=== PATIENT | male | born 1955 | race Caucasian/White ===

== ENCOUNTER 2023-06-12 09:05 | Outpatient (REF) | payer MEDICARE, SELFPAY ==
[2023-06-12 11:46] LABS: Appearance Urine Clear; Color Urine Yellow; Glucose Urine UA Negative (Negative); Leukocyte Esterase Urine Negative (Negative); Nitrite Urine Negative (Negative); Urine Blood Negative (Negative); Urine Ketones Negative (Negative); Urine Protein Negative (Neg-Trace)
[2023-06-12 11:57] LABS: Alanine Aminotransferase 16 U/L (0-40); Albumin Level 4.1 g/dL (3.5-5.0); Alkaline Phosphatase 77 U/L (39-117); Anion Gap 15 (12-20); Aspartate Amino Transferase 18 U/L (5-37); Bilirubin Total 0.6 mg/dL (0.0-1.0); Blood Urea Nitrogen 17 mg/dL (9-16); Calcium 9.2 mg/dL (8.4-10.2); Carbon Dioxide 18 mmol/L (22-29); Chloride 107 mmol/L (96-108); Cholesterol 180 mg/dL; Estimated Glomerular Filt Rate > 60; Glucose Fasting 104 mg/dL (60-99); HDL Cholesterol 38 mg/dL; LDL Cholesterol Calculated 118 mg/dl; Potassium 3.8 mmol/L (3.3-5.1); Sodium 136 mmol/L (135-145); Total Protein 7.1 g/dL (6.5-8.0); Triglycerides 121 mg/dL
[2023-06-12 12:15] LABS: TSH reflex Free T4 1.07 uIU/mL (0.32-4.0)
[2023-06-12 12:27] LABS: Creatinine Urine 114.03 mg/dL; Microalbumin Urine < 5.0 mg/L
== END 2023-06-12 09:06 | disposition home or self-care (01) ==
LOC: HO.WFDLDS 09:05
PROVIDERS: Visit Provider Family Medicine
DX: Z00.00 Encounter for general adult medical examination without abnormal findings (principal); I10 Essential (primary) hypertension
CPT/HCPCS: 36415; 80053; 80061; 81003; 82043; 84443

== ENCOUNTER 2023-06-12 09:18 | Outpatient (AMB) | payer MEDICARE, SELFPAY ==
--- NOTE | 2023-06-12 09:35 | A.OFFPC_ITS ---
Vital Signs 06/12/23 09:36 Height 5 ft 10 in Weight 206 lb BMI 29.6 BP 114/66 Blood Pressure Location Rt brachial Position Sitting Respiration 14 Pulse 87 Pulse Source Pulse Oximeter Temp 97.9 F Temp Source Temporal Artery Scan Pulse Oximetry (%) 99 Oxygen Delivery Method Room Air Intake Visit Reasons: Skin tag removal Intake Note: Patient has a skin tag located middle, right side of back. Patient states no symptoms of the area. 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 No pertinent past medical history Family History Paternal Grandfather Enlarged heart Father Heart problem Brother Prostate cancer Shoulder problem Mother Hydrocephalus Social History Housing: House Patient Tobacco Use Status: Never used Tobacco e-Cigarette/Vaping Use: Never Used service: No Current occupational status: retired Cognitive needs: No Hearing needs: No Vision needs: Yes (sometimes clear and sometimes blurry- wears glasses.) Review of Systems Const Denies chills, Denies fatigue, Denies fever(s), Denies headache(s) and Denies weakness ENT Denies dizziness and Denies headache(s) Card Denies dyspnea Resp Denies cough, Denies dyspnea, Denies wheezing and Denies other (shortness of breath) Musc Denies numbness and Denies tingling Neuro Denies dizziness, Denies headache(s), Denies numbness, Denies tingling and Denies weakness Psych Denies anxiety and Denies depression Endo Denies fatigue Aller/Immun Denies wheezing Physical exam (Primary Care) Vital Signs: Last Vital Signs Temp 97.9 F 06/12/23 09:36 Pulse 87 06/12/23 09:36 Resp 14 06/12/23 09:36 BP 114/66 06/12/23 09:36 Pulse Ox 99 06/12/23 09:36 Oxygen Delivery Method Room Air 06/12/23 09:36 BMI result Body Mass Index 29.6 Tobacco/Smoking Status: Tobacco use Status Tobacco use date assessed 05/05/23 06/12/23 09:36 Patient Tobacco Use Status Never used Tobacco 06/12/23 09:36 e-Cigarette/Vaping Use Never Used 06/12/23 09:36 Const General: well developed; No acute distress Nutritional Appearance: well nourished Orientation/consciousness: patient oriented x3 HENMT Head: Yes normocephalic and Yes atraumatic Eyes General: appearance normal, both eyes and all related structures Pupils: Equal, round and reactive pupils present EOM: EOMs intact bilaterally Resp Effort & Inspection: normal respiratory effort Skin Other: 1 cm raised skin tag on the R side of his mid back Neuro General: patient oriented x3 and gait normal Cranial nerves: Yes Equal, round and reactive pupils present Psych Affect: normal affect Assessment and Plan Assessment & Plan (1) Skin tag: Code(s): L91.8 - Other hypertrophic disorders of the skin Plan: Cleaned and prepped skin tag region in the usual fashion Applied prior freeze spray with 3 cycles of freeze-thaw Patient tolerated the procedure well Discussed S/S infection and patient will call or return to the office if he sees these Also discussed that this may require a 2nd treatment; if 2nd treatment fails, will refer him to Dermatology Coding Level of Care Code Est Pt Level 3 (68605) Diagnoses Skin tag L91.8
[2023-06-12 09:36] VITALS: BP 114/66; PULSE 87; RESP 14; TEMP 36.6; O2SAT 99; BMI 29.6
== END 2023-06-12 10:32 | disposition home or self-care (01) ==
PROVIDERS: PCP Family Medicine; Visit Provider Family Medicine
DX: L91.8 Other hypertrophic disorders of the skin (principal)
CPT/HCPCS: 99213

== ENCOUNTER 2023-07-07 13:52 | Outpatient (AMB) | payer MEDICARE, SELFPAY ==
[2023-07-07 13:59] VITALS: BP 122/72; PULSE 79; O2SAT 97; BMI 30.1
--- NOTE | 2023-07-07 13:59 | MHC.PC.OV ---
Vital Signs 07/07/23 13:59 Height 5 ft 10 in Weight 209 lb 8 oz BMI 30.1 BP 122/72 Blood Pressure Location Rt brachial Position Sitting Pulse 79 Pulse Source Pulse Oximeter Pulse Oximetry (%) 97 Intake Visit Reasons: Extended exam with f/u labs and health maintenance Intake Note: Patient is here for extended exam, with follow up labs and health maintenance. Patient would like skin tag looked at. Allergies Penicillins Allergy (Mild, Verified 07/07/23 14:03) Rash Tobacco use date assessed: 07/07/23 Fall risk assessment: No Falls in past year Last assessed Fall Risk: 07/07/23 Dental Screening Did you have a dental visit in the last 12 months?: Yes Did you have a dental problem in the last 6 months where you did not have access to dental care?: No Was dental information given to patient?: Patient has dentist HPI Extended exam with f/u labs and health maintenance HPI Details 67 y/o male presents for an extended exam with f/u labs and health maintenance. Labs were drawn 06/12/23. Reviewed labs with pt. Elevated fasting glucose of 104. A1c today 07/07/23 is 5.8%. Triglycerides 121. TC 180. LDL 118. HDL low at 38. Pt reports ongoing skin tags. [facility] Medical History Aftercare following left ankle joint replacement surgery No pertinent past medical history Family History Paternal Grandfather Enlarged heart Father Heart problem Brother Prostate cancer Shoulder problem Mother Hydrocephalus Social History Housing: House Patient Tobacco Use Status: Never used Tobacco e-Cigarette/Vaping Use: Never Used service: No Current occupational status: retired Cognitive needs: No Hearing needs: No Vision needs: Yes (sometimes clear and sometimes blurry- wears glasses.) Review of Systems Const Denies chills, Denies fatigue, Denies fever(s), Denies headache(s) and Denies weakness Eyes Denies change in vision ENT Denies dizziness, Denies headache(s), Denies hearing loss, Denies nasal congestion, Denies sinus pain, Denies sinus pressure and Denies sore throat Card Denies chest pain, Denies lightheadedness, Denies dyspnea and Denies other (palpitations) Resp Denies cough, Denies dyspnea and Denies wheezing GI Denies abdominal pain, Denies melena, Denies hematochezia, Denies change in bowel habits, Denies dyspepsia and Denies nausea Denies hematuria and Denies dysuria Musc Denies abnormal gait, Denies myalgias, Denies arthralgias, Denies numbness and Denies tingling Skin/Breast Denies rash, Denies unusual bruising and Denies wounds Neuro Denies abnormal gait, Denies dizziness, Denies headache(s), Denies memory loss, Denies numbness, Denies Sensory deficit (Neuro), Denies tingling and Denies weakness Psych Denies anxiety, Denies depression and Denies memory loss Endo Denies cold intolerance, Denies fatigue, Denies heat intolerance, Denies polydipsia and Denies polyuria Brian/Lymph Denies easy bleeding and Denies easy bruising Aller/Immun Denies wheezing Physical exam (Primary Care) Vital Signs: Last Vital Signs Pulse 79 07/07/23 13:59 BP 122/72 07/07/23 13:59 Pulse Ox 97 07/07/23 13:59 BMI result Body Mass Index 30.1 Tobacco/Smoking Status: Tobacco use Status Tobacco use date assessed 07/07/23 07/07/23 14:08 Patient Tobacco Use Status Never used Tobacco 07/07/23 14:02 e-Cigarette/Vaping Use Never Used 07/07/23 14:02 Const General: no acute distress, well developed, alert and awake Nutritional Appearance: well nourished Orientation/consciousness: patient oriented x3 HENMT Head: Yes normocephalic and Yes atraumatic Ears: hearing grossly normal bilaterally and TM's normal bilaterally General nose exam: Normal external nose present and Normal nares present Mouth: Normal oral and palatal mucosa present and moist mucous membranes Teeth and gingiva: dentition normal Throat: Yes posterior oropharynx normal Eyes General: appearance normal, both eyes and all related structures Pupils: Equal, round and reactive pupils present and Pupil accommodation reflex normal EOM: EOMs intact bilaterally Neck Neck: Yes normal visual inspection, Yes no lymphadenopathy and Yes trachea midline Thyroid: Thyroid normal Carotids: no bruits Lymphatic: no lymphadenopathy noted Chest Chest palpation & inspection: normal inspection of the chest Resp Effort & Inspection: normal respiratory effort Auscultation: clear to auscultation bilaterally Cardio Rate: regular rate Rhythm: regular rhythm Heart sounds: S1 normal heart sound present, S2 normal heart sound present, no gallops, no murmurs and no rubs Bruits: no abdominal aortic bruits and no carotid bruits GI Palpation (GI): No Abdominal aortic bruit present, Soft to palpation, nontender, No hepatosplenomegaly present and No Rebound tenderness present Auscultation: normal bowel sounds General: Yes no CVA tenderness Back/Spine/Pelvis Back: no CVA tenderness Cervical Spine: cervical ROM normal and No Cervical spine tenderness Thoracic/Lumbar Spine: thoraco-lumbar ROM normal, No pain with thoraco-lumbar ROM, No thoracic spinal tenderness and No lumbar spinal tenderness Skin Lesions: no lesions Rashes: no rashes Trauma: no lacerations or abrasions Wounds: no wounds Nails: normal Neuro General: patient oriented x3 Cranial nerves: Yes Equal, round and reactive pupils present Cognition (Neuro): normal cognition Gait exam (Neuro): Normal gait present Motor exam (neuro): 5/5 motor strength present throughout Sensory Exam: No Sensory deficit (Neuro) Deep tendon reflexes (DTR's): Right patellar reflex intensity grade: 2+ and Left patellar reflex intensity grade: 2+ Extrem General: Yes normal to inspection and No edema Psych Appearance: grossly normal Affect: normal affect Attitude: cooperative Thought process: Normal thought process present Results AMB Hemoglobin A1c AMB Hemoglobin A1c 5.8 % Last Edit by Julita Spain CMA on 07/07/23 14:26 Assessment and Plan Assessment & Plan (1) Skin tag: Code(s): L91.8 - Other hypertrophic disorders of the skin Plan: Skin tag persists after cryotherapy at last visit. Mild local infection of pedunculated aspect of skin tag He can use the triple antibiotic on this. 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 (4) Knee pain: Code(s): M25.569 - Pain in unspecified knee Plan: Right medial knee pain and probable strain of the medial collateral ligament Can start physical therapy (5) Screening for prostate cancer: Code(s): Z12.5 - Encounter for screening for malignant neoplasm of prostate Plan: Check PSA (6) Screening for colon cancer: Code(s): Z12.11 - Encounter for screening for malignant neoplasm of colon Plan: Patient says he had a colonoscopy at age 63 and was told to follow-up in 10 years. He will bring report (7) Adult general medical exam: Code(s): Z00.00 - Encounter for general adult medical examination without abnormal findings Plan: 67-year-old male presents for extended exam Encouraged healthy diet with active lifestyle and plenty of exercise Orders: Orders Prostate Specific Antigen Scr Today Z12.5 - Encounter for screening for malignant neoplasm of prostate PT Evaluation and Treatment Today M25.569 - Pain in unspecified knee AMB Hemoglobin A1c Today Z13.9 - Encounter for screening, unspecified Basic Metabolic Panel Fasting Today R73.01 - Impaired fasting glucose Lipid Panel Today E78.6 - Lipoprotein deficiency, Z00.00 - Encounter for general adult medical examination without abnormal findings Coding Level of Care Code Est Pt Level 4 (72671) Diagnoses Skin tag L91.8 Pre-diabetes R73.03 Low HDL (under 40) E78.6 Knee pain M25.569 Screening for prostate cancer Z12.5 Screening for colon cancer Z12.11 Adult general medical exam Z00.00
== END 2023-07-07 14:48 | disposition home or self-care (01) ==
PROVIDERS: PCP Family Medicine; Visit Provider Family Medicine
DX: L91.8 Other hypertrophic disorders of the skin (principal); R73.03 Prediabetes; E78.6 Lipoprotein deficiency; M25.569 Pain in unspecified knee; Z12.5 Encounter for screening for malignant neoplasm of prostate; Z12.11 Encounter for screening for malignant neoplasm of colon; Z00.00 Encounter for general adult medical examination without abnormal findings
CPT/HCPCS: 83036; 99214

== ENCOUNTER 2023-07-27 13:00 | Outpatient (RCR) | payer MEDICARE, SELFPAY ==
[2023-07-14 12:25] LABS: Prostate Specific Antigen Scr 2.14 ng/mL (<0.05-4.0)
== END 2023-11-03 11:33 | disposition home or self-care (01) ==
LOC: HO.PTWFD 13:00
PROVIDERS: PCP Family Medicine; Visit Provider Family Medicine
DX: M25.569 Pain in unspecified knee (principal); Z12.5 Encounter for screening for malignant neoplasm of prostate
CPT/HCPCS: 36415; 84153; 97110; 97161; 97535

== ENCOUNTER 2023-11-10 08:13 | Outpatient (REF) | payer MEDICARE, SELFPAY ==
[2023-11-10 11:55] LABS: Anion Gap 12 (12-20); Blood Urea Nitrogen 15 mg/dL (9-16); Calcium 9.2 mg/dL (8.4-10.2); Carbon Dioxide 24 mmol/L (22-29); Chloride 108 mmol/L (96-108); Cholesterol 182 mg/dL (<200); Estimated Glomerular Filt Rate > 60; Glucose Fasting 103 mg/dL (60-99); HDL Cholesterol 39 mg/dL (>40); LDL Cholesterol Calculated 113 mg/dL (<100); Sodium 140 mmol/L (135-145); Triglycerides 152 mg/dL (<150)
== END 2023-11-10 08:14 | disposition home or self-care (01) ==
LOC: HO.WFDLDS 08:13
PROVIDERS: Visit Provider Family Medicine
DX: Z00.00 Encounter for general adult medical examination without abnormal findings (principal); R73.01 Impaired fasting glucose; E78.6 Lipoprotein deficiency
CPT/HCPCS: 36415; 80048; 80061

== ENCOUNTER 2023-11-11 10:42 | Outpatient (AMB) | payer MEDICARE, SELFPAY ==
[2023-11-11 10:54] VITALS: BP 118/70; PULSE 81; RESP 13; TEMP 36.4; O2SAT 98; BMI 30.3
--- NOTE | 2023-11-11 10:54 | MHC.PC.OV ---
Vital Signs 11/11/23 10:54 Height 5 ft 10 in Weight 211 lb 8 oz BMI 30.3 BP 118/70 Blood Pressure Location Rt brachial Position Sitting Respiration 13 Pulse 81 Pulse Source Pulse Oximeter Temp 97.5 F Temp Source Temporal Artery Scan Pulse Oximetry (%) 98 Oxygen Delivery Method Room Air Intake Visit Reasons: f/u pre-diabetes Intake Note: Patient wanted to let pcp know that skin tag that was on his back didnt go away after trying to remove it in office. 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 Accompanied by: Self / Same As Patient Allergies Penicillins Allergy (Mild, Verified 11/11/23 11:02) Rash Medication List - Last Reconciled 11/11/23 by Martir Kenney MD No Known Home Meds Tobacco use date assessed: 07/07/23 Fall risk assessment: No Falls in past year Last assessed Fall Risk: 11/11/23 Dental Screening Dental Screen Date: 11/11/23 Did you have a dental visit in the last 12 months?: Yes Did you have a dental problem in the last 6 months where you did not have access to dental care?: No Was dental information given to patient?: Patient has dentist HPI f/u pre-diabetes HPI Details 68 y/o male presents to f/u pre-diabetes, low HDL and skin tag. Has had 1 3-cycle cryotherapy treatment but skin tag persists. Labs were drawn 11/10/23. Reviewed labs with pt. Last A1c 5.8% in June. Triglycerides 152. TC 182. LDL 113. HDL low at 39. A1c today 11/11/23 is 5.9%. 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 No pertinent past medical history Surgical History (Updated 11/11/23 @ 11:03 by Nicole Kimball MA) No pertinent past surgical history Family History Paternal Grandfather Enlarged heart Father Heart problem Brother Prostate cancer Shoulder problem Mother Hydrocephalus Social History Housing: House Patient Tobacco Use Status: Never used Tobacco e-Cigarette/Vaping Use: Never Used service: No Current occupational status: retired Cognitive needs: No Hearing needs: No Vision needs: Yes (sometimes clear and sometimes blurry- wears glasses.) Review of Systems Const Denies chills, Denies fatigue, Denies fever(s), Denies headache(s) and Denies weakness ENT Denies dizziness and Denies headache(s) Card Denies dyspnea Resp Denies cough, Denies dyspnea, Denies wheezing and Denies other (shortness of breath) Musc Denies numbness and Denies tingling Neuro Denies dizziness, Denies headache(s), Denies numbness, Denies tingling and Denies weakness Psych Denies anxiety and Denies depression Endo Denies fatigue Aller/Immun Denies wheezing Physical exam (Primary Care) Vital Signs: Last Vital Signs Temp 97.5 F 11/11/23 10:54 Pulse 81 11/11/23 10:54 Resp 13 11/11/23 10:54 BP 118/70 11/11/23 10:54 Pulse Ox 98 11/11/23 10:54 Oxygen Delivery Method Room Air 11/11/23 10:54 BMI result Body Mass Index 30.3 Tobacco/Smoking Status: Tobacco use Status Tobacco use date assessed 07/07/23 11/11/23 11:00 Patient Tobacco Use Status Never used Tobacco 11/11/23 11:00 e-Cigarette/Vaping Use Never Used 11/11/23 11:00 Const General: well developed; No acute distress Nutritional Appearance: well nourished Orientation/consciousness: patient oriented x3 [facility] Head: Yes normocephalic and Yes atraumatic Eyes General: appearance normal, both eyes and all related structures Pupils: Equal, round and reactive pupils present EOM: EOMs intact bilaterally Resp Effort & Inspection: normal respiratory effort Neuro General: patient oriented x3 and gait normal Cranial nerves: Yes Equal, round and reactive pupils present Psych Affect: normal affect Assessment and Plan Assessment & Plan (1) Pre-diabetes: Code(s): R73.03 - Prediabetes Plan: A1c?slightly?increased?from?5.8%?to?5.9% Encouraged?diet,?exercise?and?weight?loss Watch?sugars?and?starches?in?diet (2) Low HDL (under 40): Code(s): E78.6 - Lipoprotein deficiency Plan: Mildly?low?HDL Advised?increased?activity/exercise (3) Skin tag: Code(s): L91.8 - Other hypertrophic disorders of the skin Plan: Had?tried?cryotherapy?without?any?significant?change Referred?to?dermatology Orders: Orders Comprehensive [place]. Panel Fast Today R73.03 - Prediabetes, Z00.00 - Encounter for general adult medical examination without abnormal findings Lipid Panel Today E78.6 - Lipoprotein deficiency, Z00.00 - Encounter for general adult medical examination without abnormal findings Referrals Dermatology Referral L91.8 - Other hypertrophic disorders of the skin Coding Level of Care Code Est Pt Level 3 (43095) Diagnoses Pre-diabetes R73.03 Low HDL (under 40) E78.6 Skin tag L91.8
== END 2023-11-11 11:37 | disposition home or self-care (01) ==
PROVIDERS: PCP Family Medicine; Visit Provider Family Medicine
DX: R73.03 Prediabetes (principal); E78.6 Lipoprotein deficiency; L91.8 Other hypertrophic disorders of the skin
CPT/HCPCS: 99213

== ENCOUNTER 2025-04-09 19:33 | Emergency (ER) | payer MEDICARE, SELFPAY ==
--- NOTE | ~2025-04-09 | XR_ITS ---
CLINICAL HISTORY: cp 2 view chest x-ray Comparison: None Findings: No consolidation or effusion. Heart size is normal. No acute fracture. IMPRESSION: 1. No acute findings. This document has been electronically signed by: Charissa Anton MD on 04/09/2025 22:41:23
--- NOTE | 2025-04-09 19:36 | ECG_ITS ---
Test Reason : chest tightness Blood Pressure : */* mmHG Vent. Rate : 120 BPM Atrial Rate : * BPM P-R Int : * ms QRS Dur : 86 ms QT Int : 320 ms P-R-T Axes : * 0 17 degrees QTcB Int : 452 ms Atrial fibrillation with rapid ventricular response Nonspecific ST abnormality Abnormal ECG No previous ECGs available Referred By: Generic ED Physician Electronically Signed By: Tip Leon
[2025-04-09 19:43] VITALS: BP 153/77; PULSE 147; RESP 17; TEMP 36.7; O2SAT 94; BMI 31.1
[2025-04-09 19:55] LABS: MANUAL DIFF FLAG NO
[2025-04-09 20:00] VITALS: PULSE 150
[2025-04-09] MEDS: dilTIAZem HCL 50 MG/10 ML VIAL 10 MG IVPUSH (20:00)
[2025-04-09 20:01] VITALS: BP 97/47; PULSE 103; RESP 17; O2SAT 94
[2025-04-09 20:05] LABS: Basophils Absolute Auto 0.1 X10*3/uL (0.0-0.2); Basophils Percent Auto 0.7 % (0-2); Eosinophils Absolute Auto 0.1 X10*3/uL (0.0-0.4); Eosinophils Percent Auto 1.4 % (0-4); Hematocrit 46.7 % (42.0-52.0); Hemoglobin 16.3 g/dl (14.0-18.0); Imm Gran Abs Auto 0.02 X10*3/uL (0.00-0.03); Imm Gran Pct Auto 0.2 % (0.0-0.4); Lymphocytes Absolute Auto 2.1 X10*3/uL (1.2-4.9); Lymphocytes Percent Auto 23.2 % (20-40); Mean Corpuscular HGB Conc 34.9 g/dl (31.0-36.0); Mean Corpuscular Hemoglobin 28.3 pg (27.0-33.0); Mean Corpuscular Volume 81.2 fL (80.0-98.0); Mean Platelet Volume 10.1 fL (9.4-12.4); Monocytes Absolute Auto 0.6 X10*3/uL (0.1-1.2); Monocytes Percent Auto 6.1 % (2-11); Neutrophils Absolute Auto 6.2 x10*3/uL (2.0-8.3); Neutrophils Percent Auto 68.4 % (45-73); Platelet Count 319 X10*3/uL (160-400); Red Blood Count 5.75 X10*6/uL (4.60-5.80); Red Cell Distribution Width 12.6 % (11.0-16.0)
--- NOTE | 2025-04-09 20:08 | PC.NURSE ---
pt a&ox4, respirations even and unlabored. pt brought back from waiting room into room at this time. pt reports onset of palpitations while watching tv, reports he checked his pulse and it was fast. pt in rapid afib in room 120-150bpm. pt reports he still feels palpitations. at bedside. 18g placed in left forearm, labs obtained. vss otherwise. pt medicated per jan.
[2025-04-09 20:12] LABS: Alanine Aminotransferase 33 U/L (0-40); Albumin Level 4.7 g/dL (3.5-5.0); Alkaline Phosphatase 94 U/L (39-117); Anion Gap 15 (12-20); Aspartate Amino Transferase 29 U/L (5-37); Bilirubin Direct 0.1 mg/dL (0.0-0.5); Bilirubin Total 0.4 mg/dL (0.0-1.0); Blood Urea Nitrogen 17 mg/dL (9-16); Calcium 9.6 mg/dL (8.4-10.2); Carbon Dioxide 21 mmol/L (22-29); Chloride 111 mmol/L (96-108); Creatinine Clr Calc Pharmacy 87.5; Estimated Glomerular Filt Rate > 60; Glucose Random 166 mg/dL (60-115); Potassium 3.7 mmol/L (3.3-5.1); Sodium 143 mmol/L (135-145); Total Protein 7.7 g/dL (6.5-8.0)
[2025-04-09 20:21] VITALS: BP 109/61; PULSE 106; RESP 17; O2SAT 99
[2025-04-09 20:21] LABS: Troponin-I High Sensitivity < 2.7 ng/L (<3.5-35.0)
[2025-04-09 20:24] LABS: B Type Natriuretic Peptide 73 pg/mL (<100)
[2025-04-09 20:57] VITALS: PULSE 150; RESP 20
--- NOTE | 2025-04-09 20:57 | PC.NURSE ---
pt taken for ambulation trial, pt heart rate between 122-150bpm. aware. pt denies palpitations.
--- NOTE | 2025-04-09 21:42 | ECG_ITS ---
Test Reason : RYTHMN CHANGE Blood Pressure : */* mmHG Vent. Rate : 76 BPM Atrial Rate : 76 BPM P-R Int : 178 ms QRS Dur : 84 ms QT Int : 380 ms P-R-T Axes : 60 3 37 degrees QTcB Int : 427 ms Normal sinus rhythm Normal ECG When compared with ECG of 09-Apr-2025 19:37, Sinus rhythm has replaced Atrial fibrillation Vent. rate has decreased by 44 bpm Referred By: Bridgette Tamayo Electronically Signed By: Tip Leon
--- NOTE | 2025-04-09 21:44 | ED_ITS ---
HPI - Arrhythmia/Palpitations General Chief Complaint: Arrhythmia/Palpitations Stated Complaint: chest tighness/dizzy/irregular heartbeat Time Seen by Provider: 04/09/25 19:44 Source: patient Mode of arrival: ambulatory Limitations: no limitations History of Present Illness ED Provider: Dr. Bridgette Tamayo HPI narrative: Patient comes to the emergency room complaining of palpitations. Patient states that 1 hour prior to arrival, patient was sitting down watching TV, had a bit of a dizzy spell that lasted 4-5 seconds and self-resolved. However, patient noted that he was having palpitations. Patient's checked his heart rate and it was high. Patient states that he has a little bit of chest tightness but no significant pain. Denies lower extremity edema. To his knowledge, patient has never been diagnosed to AFib/a flutter Related Data Previous Rx's ?Medication ?Instructions ?Recorded metoprolol succinate 25 mg 25 mg PO DAILY #90 tabs 04/09/25 tablet,extended release 24 hr (Toprol XL) Allergies Allergy/AdvReac Type Severity Reaction Status Date / Time Penicillins Allergy Mild Rash Verified 04/09/25 19:47 Review of Systems 2 Review of Systems: Constitutional : No Weight loss, No Fever, No Chills, No Night Sweats, No Fatigue, No Malaise ENT/Mouth : No Hearing loss, No Ear Pain, No Nasal Congestion, No Sinus Pain, No Hoarseness, No sore throat, No Rhinorrhea, No Swallowing Difficulty Eyes: No Eye Pain, No Swelling, No Redness, No Foreign Body, No Discharge, No Vision Changes Cardiovascular : No Chest Pain, No SOB, No Dyspnea on Exertion, No Orthopnea, No Edema, complaining Palpitations Respiratory : No Cough, No Sputum, No Wheezing, No Smoke Exposure, No Dyspnea Gastrointestinal : No Nausea, No Vomiting, No Diarrhea, No Constipation, No abdominal Pain, No Hematochezia, No Melena Genitourinary : no irregular bleeding, No Dysuria, No Urinary Frequency, No Hematuria, No Urinary Incontinence, No Urgency, No Flank Pain, No Urinary Flow Changes, No Hesitancy Musculoskeletal : No joint pain, No Myalgias, No Joint Swelling Skin : No Skin Lesions, No rash Neuro : No Weakness, No Numbness, No Paresthesias, No Loss of Consciousness, No Dizziness, No Headache Psych : No Anxiety/Panic, No Depression, No SI/HI/AH/VH, No Social Issues, Heme/Lymph: No Bruising, No Bleeding,No Lymphadenopathy Endocrine : No Polyuria, No Polydipsia, No Temperature Intolerance [facility] Past Medical History Medical History Aftercare following left ankle joint replacement surgery No pertinent past medical history Surgical History (Updated 11/11/23 @ 11:03 by SOSA Keating) No pertinent past surgical history Family History Family History Paternal Grandfather Enlarged heart Father Heart problem Brother Prostate cancer Shoulder problem Mother Hydrocephalus Social History Social History Housing: House Patient Tobacco Use Status: Never used Tobacco Smoked in Last 30 Days: No e-Cigarette/Vaping Use: Never Used Use of substances other than those prescribed or required for medical reasons: No Advance Directives: No Advance Directives Information Provided: No Do you have a plan to hurt others: No Plan service: No Current occupational status: retired Cognitive needs: No Hearing needs: No Vision needs: Yes (sometimes clear and sometimes blurry- wears glasses.) Physical Exam 2 Vital Signs: Vital Signs: Last Vital Signs Temp 98.0 F 04/09/25 19:43 Pulse 150 H 04/09/25 20:57 Resp 20 04/09/25 20:57 BP 109/61 04/09/25 20:21 Pulse Ox 99 04/09/25 20:21 O2 Del Method Room Air 04/09/25 20:21 BMI result Body Mass Index 31.1 Const: Other: Appearance: Alert. Oriented X3. No acute distress. Eyes: Pupils equal, round and reactive to light. ENT: Pharynx normal. Neck: Normal inspection. Neck supple. No lymph nodes noted. No crepitus CVS: Heart rate is irregularly irregular, heart rate in the 150s to 160s, Pulses normal. Normal S1 and S2 Respiratory: No respiratory distress. Breath sounds normal. No Wheezing. No rales Abdomen: Soft and nontender. No rigidity. No distention. Skin: Skin warm and dry. Normal skin color. Normal skin turgor. Extremities: No lower extremity edema. No Lacerations. No Rash Neuro: Oriented X 3. No motor deficit. No sensory deficit. Moving all extremities. No slurred speech. CN 2 through 12 grossly intact Psych: calm, cooperative, normal affect Course Course Course Narrative: Patient's blood pressure 153/77, heart rate between 150-170 EKG shows atrial fibrillation Patient receiving a dose of Cardizem IV 10 mg Medications Administered Discontinued Medications Generic Name Dose Route Start Last Admin Trade Name Freq PRN Reason Stop Dose Admin Diltiazem HCl 10 mg 04/09/25 19:57 04/09/25 20:00 Diltiazem Hcl 50 Mg/10 Ml Vial IVPUSH 04/09/25 19:58 10 mg STAT STA Administration Medical Decision Making Medical Decision Making [facility] Narrative: My interpretation of EKG: Atrial fibrillation, heart rate 120, nonspecific ST changes in the lateral leads, no reciprocal changes, QTC 452 Patient received a dose of Cardizem 10 mg IV. Patient's heart rate improved, currently in the 70s, blood pressure 109/51 EKG 2: Normal sinus rhythm, heart rate 76, no ST segment depression or elevation, no T-wave inversion QTC 427 My interpretation of labs, no significant abnormality in patient's hematology and chemistry, normal troponin BNP CHADS2 Vasc score 1, point given for age. Patient has no history of CHF, hypotension, stroke/TIA or vascular disease history, at this time, we will not start patient on anticoagulation. Patient is asymptomatic, heart rate in the 70s, back to sinus rhythm Patient will start p.o. metoprolol and will follow-up with cardiology Differential Diagnosis Differential Diagnoses: The differential diagnosis associated with the presentation includes (Atrial fibrillation, atrial flutter, SVT) Admission/Observation Consideration of admission/observation: Escalation of care including admission/observation considered (Given patient's age and symptoms, patient was considered) Lab Data [facility] Lab Attestation statement: I reviewed the patient's lab results. 04/09/25 19:50 04/09/25 19:50 Labs: Lab Results 04/09/25 Range/Units 19:50 WBC 9.0 (4.8-10.8) X10*3/uL RBC 5.75 (4.60-5.80) X10*6/uL Hgb 16.3 (14.0-18.0) g/dl Hct 46.7 (42.0-52.0) % MCV 81.2 (80.0-98.0) fL MCH 28.3 (27.0-33.0) pg MCHC 34.9 (31.0-36.0) g/dl RDW 12.6 (11.0-16.0) % Plt Count 319 (160-400) X10*3/uL MPV 10.1 (9.4-12.4) fL Immature Gran % (Auto) 0.2 (0.0-0.4) % Neut % (Auto) 68.4 (45-73) % Lymph % (Auto) 23.2 (20-40) % Toole % (Auto) 6.1 (2-11) % Eos % (Auto) 1.4 (0-4) % Baso % (Auto) 0.7 (0-2) % Lymph # (Auto) 2.1 (1.2-4.9) X10*3/uL Toole # (Auto) 0.6 (0.1-1.2) X10*3/uL Eos # (Auto) 0.1 (0.0-0.4) X10*3/uL Baso # (Auto) 0.1 (0.0-0.2) X10*3/uL Abs Immat Gran (auto) 0.02 (0.00-0.03) X10*3/uL Absolute Neuts (auto) 6.2 (2.0-8.3) x10*3/uL Absolute Nucleated RBC 0.000 (0.0-0.012) X10*3/uL Nucleated RBC % (auto) 0.0 (0.0-0.2) /100WBC Hold Blue Top SEE NOTE Sodium 143 (135-145) mmol/L Potassium 3.7 (3.3-5.1) mmol/L Chloride 111 H (96-108) mmol/L Carbon Dioxide 21 L (22-29) mmol/L Anion Gap 15 (12-20) BUN 17 H (9-16) mg/dL Creatinine 0.95 (0.5-1.4) mg/dL Estim Creat Clear Calc 87.5 Estimated GFR > 60 Random Glucose 166 H (60-115) mg/dL Calcium 9.6 (8.4-10.2) mg/dL Total Bilirubin 0.4 (0.0-1.0) mg/dL Direct Bilirubin 0.1 (0.0-0.5) mg/dL AST 29 (5-37) U/L ALT 33 (0-40) U/L Alkaline Phosphatase 94 (39-117) U/L Troponin I High Sens < 2.7 (<3.5-35.0) ng/L B-Natriuretic Peptide 73 (<100) pg/mL Total Protein 7.7 (6.5-8.0) g/dL Albumin 4.7 (3.5-5.0) g/dL Critical Care Time Critical Care Time Critical Care Time: Yes Total Critical Care Time: 45 Attestation: I have personally provided critical care time. Time includes review of lab data, radiology results, discussion with consultants, and monitoring for potential decompensation. Intervention performed as documented. Discharge Plan Discharge Clinical Impression: Atrial fibrillation with RVR Patient Disposition: Home, Self-Care Instructions: Katelin-fib (Atrial Fibrillation) (ED) Additional Instructions: Please follow-up with your primary care physician tomorrow. If you have any worsening or new symptoms, please return to the emergency room or call 911 Prescriptions: New metoprolol succinate [Toprol XL] 25 mg tablet extended release 24 hr 25 mg PO DAILY Qty: 90 0RF Referrals: Tip Leon MD [Physician] - Rudy Cota MD [Physician] - 04/11/25 (New onset atrial fibrillation) Print Language: Bulgarian
[2025-04-09 22:23] VITALS: BP 103/64; PULSE 105; RESP 16; TEMP 37; O2SAT 98
== END 2025-04-09 22:29 | disposition home or self-care (01) ==
PROVIDERS: Emergency Provider Emergency Medicine; PCP Family Medicine
DX: I48.20 Chronic atrial fibrillation, unspecified (principal); I49.8 Other specified cardiac arrhythmias; R42 Dizziness and giddiness; R06.02 Shortness of breath; Z79.899 Other long term (current) drug therapy
CPT/HCPCS: 36415; 71046; 80048; 80076; 83880; 84484; 85025; 93005; 96374; 99284; 99285

== ENCOUNTER → 2025-04-09 19:36 | Outpatient (BNV) | payer MEDICARE, SELFPAY | PROVIDERS: Emergency Provider Emergency Medicine; PCP Family Medicine; Visit Provider Internal Medicine Cardiovascular Disease | DX: I48.91 Unspecified atrial fibrillation (principal); I49.9 Cardiac arrhythmia, unspecified | CPT/HCPCS: 93010 ==

== ENCOUNTER → 2025-04-09 21:00 | Outpatient (BNV) | payer MEDICARE, SELFPAY | PROVIDERS: Emergency Provider Emergency Medicine; PCP Family Medicine; Visit Provider Student in an Organized Health Care Education/Training Program | DX: R07.9 Chest pain, unspecified (principal) | CPT/HCPCS: 71046 ==

== ENCOUNTER 2025-04-21 13:56 | Outpatient (AMB) | payer MEDICARE, SELFPAY ==
--- NOTE | 2025-04-21 14:04 | MHC.OFFVIS ---
Vital Signs 04/21/25 14:05 Height 5 ft 10 in Weight 210 lb 12.191 oz BMI 30.2 BP 110/64 Blood Pressure Location Lt brachial Position Sitting Pulse 59 Pulse Source Monitor Intake Visit Reasons: [id number] up chest tightness/dizzy/irregular hr Debt Counselor Required: No Accompanied by: Spouse Allergies Penicillins Allergy (Mild, Verified 04/09/25 19:47) Rash Medication List - Last Reconciled 04/21/25 by Zan Cohen NP metoprolol succinate ER (Toprol XL) 25 mg PO DAILY HPI Comments Details: This is a 69-year-old male patient who is accompanied by his is referred here for cardiac consultation for further evaluation of newly diagnosed AFib. Patient with no known history of cardiomyopathy, coronary artery disease, or ischemic disease. Patient was recently seen in the emergency room for an episode of dizziness and heart palpitations at which time he was seen to be in AFib with RVR and was treated with IV Cardizem and soon after converted into normal sinus rhythm. Today, patient reports that he has had some dizzy spells many years ago without any heart palpitations which he ignored in the past. Since ER discharge, patient states that he feels like a knot in his epigastric region can occur with rest as well as with exertion. Patient is otherwise denying any associated symptoms of exertional shortness of breath, palpitations, dizziness, orthopnea, PND, leg edema, presyncope, or syncope. Patient does note that he recently started getting active with bike rides up to 15 miles a day. Patient also notes that he has started to eat healthier and is now on a Mediterranean diet. [facility] Medical History Aftercare following left ankle joint replacement surgery No pertinent past medical history Surgical History No pertinent past surgical history Family History Paternal Grandfather Enlarged heart Father Heart problem Brother Prostate cancer Shoulder problem Mother Hydrocephalus Social History Housing: House Patient Tobacco Use Status: Never used Tobacco e-Cigarette/Vaping Use: Never Used service: No Current occupational status: retired Cognitive needs: No Hearing needs: No Vision needs: Yes (sometimes clear and sometimes blurry- wears glasses.) Review of Systems Const Denies chills, Denies fatigue, Denies fever(s), Denies frequent falls, Denies weakness, Denies weight gain and Denies weight loss ENT Denies dizziness Card Denies chest pain, Denies leg edema, Denies lightheadedness, Denies palpitations, Denies dyspnea, Denies dyspnea on exertion and Denies orthopnea Resp Denies cough, Denies dyspnea and Denies dyspnea on exertion GI Denies bloating and Denies change in bowel habits Musc Denies muscle weakness, Denies numbness and Denies tingling Neuro Denies dizziness, Denies frequent falls, Denies numbness, Denies tingling and Denies weakness Endo Denies fatigue and Denies palpitations Physical Exam Vital Signs: Last Vital Signs Pulse 59 04/21/25 14:05 BP 110/64 04/21/25 14:05 BMI result Body Mass Index 30.2 Const General: cooperative, healthy appearing, comfortable and no acute distress Orientation/consciousness: patient oriented x3 HEENT Head: Yes normal to inspection Neck Neck: Yes normal visual inspection, Yes trachea midline and Yes supple Chest Chest palpation & inspection: normal inspection of the chest Resp Effort & Inspection: normal respiratory effort Auscultation: clear to auscultation bilaterally, no crackles, no rales, no rhonchi and no wheezes Cardio Jugular venous distension: no JVD Palpation: normal PMI Rate: bradycardic Rhythm: regular rhythm Heart sounds: S1 normal heart sound present, S2 normal heart sound present, no click, no gallops, no murmurs and no rubs Peripheral pulses: Peripheral pulses 2+ throughout GI Inspection: Yes normal to inspection Palpation (GI): Soft to palpation Auscultation: normal bowel sounds Skin General skin exam: no rashes or lesions noted Neuro General: patient oriented x3 Extrem General: Yes normal to inspection, No no pedal edema and No calf tenderness Psych Appearance: grossly normal Mental Status: mental status grossly normal Speech and movement: Normal speech and movement present Office Procedures EKG Details: EKG today showed sinus bradycardia with PACs with aberrant conduction, rate 59 beats per minute, nonspecific STT wave, [place], [place]. [id number], Complete Assessment & Plan Assessment & Plan (1) Afib: Code(s): I48.91 - Unspecified atrial fibrillation Category: Medical (2) Chest pain: Code(s): R07.9 - Chest pain, unspecified Category: Medical Plan Patient newly diagnosed with AFib in the emergency room where he was found to be in AFib with RVR and was treated with IV Cardizem. Patient's converted into normal sinus rhythm and today's EKG shows sinus. Patient's Bal Vasc risk score of 1 given his age. Discussed in detail risk for stroke with AFib and anticoagulation. At this time, we decided to defer this until further testings. We will get an echo to assess for LV systolic and diastolic dysfunction, enlarged atriums, wall motion abnormalities, or valvular pathology. Given his reports of atypical chest/epigastric not, we will proceed with a treadmill stress test to look for ischemic changes. We will also obtain a Holter study to look for recurrences of AFib and its burden. Further treatment plans depending on findings. We also discussed about potential need to get a sleep study to evaluate for sleep apnea given his reports of snoring, however, patient would like to defer this until below testings are completed. Patient was explained on sleep apneas correlation with the AFib. Continue metoprolol therapy for rate control approach. Blood pressure is within normal limits. Advised monitoring blood pressures at home with a goal of less than 130/80. Patient's LDL was elevated at 113 from 2022. Would like to repeat a lipid profile however patient would like to defer this for now as well. Explained that ideal goal for him is less than 100. Advised heart healthy diet, regular exercise, adequate hydration, avoiding stimulants like caffeinated beverages and alcohol, management of vascular risk factors, and medication adherence. Follow up after completion of the test. In the interim, patient will call the office with any concerns or change in symptoms. This note was generated using voice recognition software. While every effort has been made to ensure accuracy and proper tire finisher, there may be occasional errors that could affect the content or meaning of the described symptoms. Orders: Orders ECG 7 day holter monitor Today I48.91 - Unspecified atrial fibrillation, R07.9 - Chest pain, unspecified CA echo transthoracic complete Today I48.91 - Unspecified atrial fibrillation, R07.9 - Chest pain, unspecified CA stress test Today I48.91 - Unspecified atrial fibrillation, R07.9 - Chest pain, unspecified AMB EKG-In Office Today I48.91 - Unspecified atrial fibrillation Coding Level of Care Code Tele New Pt Level 4 (25679) Complex EM visit Add On G2211 Diagnoses Afib I48.91 Chest pain R07.9 CPT Codes EKG - CPT: 68745-[id number], Complete ([id number]) Time Spent (min) 32 Comment Time spent in reviewing the chart, test results, assessment, counseling and documentation.
[2025-04-21 14:05] VITALS: BP 110/64; PULSE 59; BMI 30.2
== END 2025-04-21 14:41 | disposition home or self-care (01) ==
LOC: HO.HCS 13:57
PROVIDERS: PCP Family Medicine
DX: I48.91 Unspecified atrial fibrillation (principal); R07.9 Chest pain, unspecified
CPT/HCPCS: 93010; 99204; G2211

== ENCOUNTER → 2025-04-21 13:56 | Outpatient (BNVA) | payer MEDICARE, SELFPAY | PROVIDERS: PCP Family Medicine | DX: I48.91 Unspecified atrial fibrillation (principal); R07.9 Chest pain, unspecified | CPT/HCPCS: 93005; 99202 ==

== ENCOUNTER → 2025-04-28 08:33 | Outpatient (REF) | payer MEDICARE, SELFPAY | LOC: HO.CARD 08:33 | PROVIDERS: PCP Family Medicine | DX: I48.91 Unspecified atrial fibrillation (principal); R07.9 Chest pain, unspecified | CPT/HCPCS: 93242 ==

== ENCOUNTER → 2025-04-28 08:36 | Outpatient (BNV) | payer MEDICARE, SELFPAY | PROVIDERS: PCP Family Medicine; Visit Provider Internal Medicine Cardiovascular Disease | DX: I49.1 Atrial premature depolarization (principal) | CPT/HCPCS: 93244 ==

== ENCOUNTER → 2025-06-12 07:43 | Outpatient (REF) | payer MEDICARE, SELFPAY ==
--- NOTE | 2025-06-12 07:46 | CA_ITS ---
Transthoracic Echocardiogram Patient (Last, First, Middle): Luis Lugo, Gender: Male Date of : 1955 Age: 69 Procedure Date: 06/12/2025 Procedure Type: Transthoracic Echocardiogram Location: OP Height: 177.8 cm Weight: 95.26 kg BSA: 2.13 m2 Heart Rate: bpm BP: 110 / 64 mmHg Edge Bonder: SAGE Referring MD: Zan Cohen [facility] Regional Sales Manager: Kilo Marie MD Symptoms: R07.9 - Chest pain, unspecified Study Quality: Adequate ECG Rhythm: Sinus Conclusions: - 1. Normal LV ejection fraction of 60 65% 2. Mildly dilated left atrium 3. Cardiac valvular Dopplers within normal limits 4. Normal RV systolic pressure 5. No gross pericardial effusion Findings Left Ventricle Normal left ventricular size, thickness, and systolic function. The visually estimated ejection fraction is between 60-65%. Spectral Doppler is indicative of a normal filling pattern. Right Ventricle Normal right ventricular cavity size and systolic function. Atria The left atrium is mildly dilated. There is lipomatous hypertrophy of the interatrial septum. Interatrial shunt cannot be excluded. The right atrium is normal in size. Aortic Valve The aortic valve was not well visualized. There is no aortic valve stenosis. There is no aortic valve regurgitation. Mitral Valve Likely normal mitral valve structure and function. There is trace mitral valve regurgitation. There is no mitral valve stenosis. Pulmonic Valve The pulmonic valve was not well visualized. Tricuspid Valve Likely normal tricuspid valve structure and function. There is trace tricuspid valve regurgitation. The right ventricular systolic pressure is normal. The right ventricular systolic pressure is 27 mmHg. Normal right atrial pressure. There is no evidence of pulmonary hypertension. Great Vessels All visible segments of the aorta are normal in size. The pulmonary artery was not well visualized. Small plaque is seen in the sino tubular ridge. Venous The inferior vena cava is normal in size and collapses greater than 50% with inspiration. Pericardium/Pleural There is no evidence of pericardial effusion. Prior Study Comparison No prior study available for comparison. Measurements 2D Linear Measurements IVSd: 0.94 0.6-0.9/0.6-1.0 cm LVIDd: 5.40 3.9-5.3/4.2-5.9 cm LVIDd Index: 2.54 2.4-3.2/2.2-3.1 cm/m2 LVIDs: 3.55 2.0-3.6 cm LVPWd: 0.85 0.7-1.1 cm LA Diam: 4.40 2.7-3.8/3.0-4.0 cm LAIDs Index: 2.07 1.5-2.3 cm/m2 LV Mass: 221.19 67-162/88-224 g LV Mass Index: 103.84 43-95/49-115 g/m2 LVOT Diam: 2.20 3.0+(-)1.3 cm 2D Systolic Function EF 4C: 66.30 >55% EF 2C: 58.80 >55% EF BiP: 62.60 >55% Mitral Valve MV Pk E: 0.71 MV PK A: 0.45 MV Decel Time: 344.00 E/A: 1.60 E'Lateral: 10.80 E'Medial: 7.62 E/E' Med: 9.30 E/E' Lat: 6.60 PHT: 101.00 MVA PHT: 2.18 Decel Jack: 2.07 Aortic Valve AoV Pk Maximino: 1.32 AoV Mn Maximino: 0.88 AoV VTI: 0.31 AoV Pk Grad: 7.00 Aov Mn Grad: 4.00 VINNIE Cont.VTI: 2.49 LVOT LVOT Pk Maximino: 0.93 LVOT Mn Maximino: 0.59 LVOT VTI: 0.20 LVOT Pk Grad: 3.00 LVOT Mn Grad: 2.00 LVOT Diam: 2.20 LVOT Area: 3.80 Diastolic Function MV Pk E: 0.71 MV Pk A: 0.45 E/A: 1.60 E'Medial: 7.62 E/E' Med: 9.30 E' Laterial: 10.80 E/E' Lat: 6.60 Right Ventricle TAPSE (mm): 26.30 TVS' Maximino: 12.90 Tricuspid Valve TR Pk Maximino: 2.20 TR Pk Grad: 19.00 RA Press: 8.00 RVSP: 27.00 Great Vessels Aorta Sinus of Valsalva: 3.09 2.0-3.[address] Ridge: 2.65 1.7-3.4 cm Ao Asc: 3.20 2.1-3.4 cm Ao Arch: 2.90 Updated in Other Vendor System with Status of Final Kilo Marie MD electronically signed on 06/12/2025 10:20:00 AM with status of Final
--- NOTE | 2025-06-12 07:46 | CA_ITS ---
Acquisition Time: 2025-06-12 08:40:37 Total Exercise Time: 00:08:50 Test Indications: CP,Abnormal ECG AFIB Medications: METOPROLOL Protocol: CORONA Max HR: 131 BPM 86% of Pred: 152 BPM Max BP: 142/68 mmHG Max Work Load: 10.1 METS Exercise stress test with exercise 8 mins 50 secs of Corona Protocol, achieving 86% MPHR, with reports of SOB, no chest pain, with isolated PACs and ventricular couplets, with normotensive response to exercise. Without any EKG changes meeting criteria foir ischemia. In recovery, breathing returned to baseline. Test reviewed with Dr. Marie. Referred By: Zan Cohen Electronically Signed By: Zan Cohen
== END ==
LOC: HO.CARD 07:43
PROVIDERS: PCP Family Medicine
DX: R07.9 Chest pain, unspecified (principal); I48.91 Unspecified atrial fibrillation
CPT/HCPCS: 93017; 93306

== ENCOUNTER → 2025-06-12 07:46 | Outpatient (BNV) | payer MEDICARE, SELFPAY | PROVIDERS: PCP Family Medicine; Visit Provider Internal Medicine Cardiovascular Disease | DX: R07.9 Chest pain, unspecified (principal); I51.7 Cardiomegaly; I49.1 Atrial premature depolarization; R06.02 Shortness of breath | CPT/HCPCS: 93016; 93018; 93320; 93325; 93350 ==